=== PATIENT | female | born 1965 | race Caucasian/White ===

== ENCOUNTER 2024-08-08 00:33 | Inpatient (IN) | payer OTHER ==
[~2024-08-08] VITALS: Ht 152.4 cm; Wt 81.6 kg
--- NOTE | 2024-08-08 01:09 | NUR ---
SE RECIBE PACIENTE ALERTA Y ORIENTADA X3 LA CUAL REFIERE VENIR A [place] DE QUE EN EL [place] [facility] EN [facility] DONDE LA TRANSFIRIERON A [facility] PARA REALIZARLE UN ERCP Y ENCONTRARON JOSE ANGEL EN EL CONDUCTO BILIAR Y EN LA VESICULA. LUE[place] DE ESO PACIENTE EXPLICA QUE EL [facility] NO LE PERMITIO QUEDARSE ADMITIDA EN [facility] Y TUVO QUE VOLVER AL [facility] PARA EXONERAR [facility] Y VOLVER A [facility] PARA CONTINUAR ATENDIENDOSE CON GASTROENTEROLOGA DR. RASHI CHOE.
[2024-08-08] MEDS ORDERED: FAMOTIDINE/PF 20 MG/2 ML VIAL IV PUSH STA (01:54)
[2024-08-08] MEDS ORDERED: HYOSCYAMINE SULFATE 0.125 MG TAB.SUBL SL STA (01:55)
[2024-08-08] MEDS ORDERED: RINGERS SOLUTION,LACTATED 1,000 ML IV ONE (02:00)
--- NOTE | 2024-08-08 02:05 | NUR ---
SE ORIENTA A PACIENTE SOBRE [place] MEDICO, REFIERE ENTENDER. SE REALIZAN MUESTRAS DE LABORATORIO BAJO MEDIDAS ASEPTICAS. SE ADMINISTRAN MEDICAMENTO SAE ORDEN MEDICA. PACIENTE MANEJADA POR .
[2024-08-08 03:12] LABS: ALBUMIN 3.5 gm/dL (3.4-5.0); BILIRUBIN TOTAL 0.75 mg/dL (0.3-1.2); BILIRUBIN,CONJUGATED 0.29 mg/dL (0.0-0.2); BILIRUBIN,UNCONJUGATED 0.46 mg/dL (0.0-0.6); CALCIUM 9.3 mg/dL (8.5-10.1); CREATININE SERUM 0.84 mg/dL (0.55-1.02); GFR 69.4; GLOBULINA 3.5 G/DL (2.4-3.5); POTASSIUM 4.2 mEq/L (3.5-5.1)
[2024-08-08 03:52] LABS: HEMATOCRIT 42.7 % (36.0-45.00); HEMOGLOBIN 14.6 g/dL (12.0-15.00); MEAN CELL VOLUME 87.6 fL (80.00-100.00); MEAN CORPUSCULAR HEMOGLOBIN 29.9 pg (27.00-32.0); MEAN CORPUSCULAR HGB CONC 34.2 g/dl (32.0-36.0); PLATELET COUNT 267 K/uL (150-450); RED BLOOD COUNT 4.88 M/uL (4.00-6.00); RED CELL DISTRIBUTION WIDTH 13.7 % (11.5-14.5)
[2024-08-08 04:57] LABS: INR 1.09; PARTIAL THROMBOPLASTIN TIME 29.1 SECONDS (22.0-34.0); PROTHROMBIN TIME 11.8 SECONDS (9.0-11.5)
--- NOTE | 2024-08-08 07:37 | NUR ---
SE RECIBE MASCULINO DESCANSANDO AL MOMENTO CON BARADAS ELEVADAS POR ABDI SEGURIDAD Y JEONG DE ID. VENOPUNCION PATENTE BAJANDO IV FLUIDS POR REGULADOR. PTE PENDIENTE A RE-EVAL.
[2024-08-08] MEDS ORDERED: PIPERACILLIN/TAZOBACTAM SODIUM 3.375 GM in DEXTROSE 5 % IN WATER 100 ML IV SCH (08:11)
[2024-08-08 08:35] LABS: PH,URINE 5.5 (5.0-8.0); URINE APPEARANCE Clear; URINE BILIRRUBIN Negative (NEGATIVE); URINE BLOOD Negative; URINE COLOR Yellow; URINE GLUCOSE Negative (NEGATIVE); URINE LEUKOCYTE Negative; URINE NITRATE Negative; URINE PROTEIN Negative (NEGATIVE); URINE UROBILINOGEN 0.2 E.U./dl
[2024-08-08 08:39] LABS: URINE EPITHELIAL CELLS 4.6 uL (0.0-38.8)
[2024-08-08 09:14] LABS: URINE BACTERIA 1.2 uL (0.0-1933); URINE KETONE 80 (NEGATIVE); URINE RBC 1.5 uL (0.0-20.8)
[2024-08-08] MEDS ORDERED: 0.9 % SODIUM CHLORIDE 1,000 ML IV SCH (18:00)
[2024-08-08] MEDS ORDERED: ONDANSETRON HCL 4 MG in 0.9 % SODIUM CHLORIDE 50 ML IV PRN (18:00)
[2024-08-08] MEDS ORDERED: MORPHINE SULFATE 4 MG/ML CARTRIDGE IV PRN (18:00)
[2024-08-08] MEDS ORDERED: ACETAMINOPHEN 500 MG GEL..CAP PO PRN (18:00)
[2024-08-08] MEDS ORDERED: RINGERS SOLUTION,LACTATED 1,000 ML IV SCH (18:15)
[2024-08-08 18:41] VITALS: BP 117/74; O2SAT 98
[2024-08-09 00:09] VITALS: BP 136/77; O2SAT 97
[2024-08-09 05:41] LABS: BILIRUBIN TOTAL 0.86 mg/dL (0.3-1.2); CALCIUM 8.7 mg/dL (8.5-10.1); CREATININE SERUM 0.76 mg/dL (0.55-1.02); GFR 77.89; GLOBULINA 3.1 G/DL (2.4-3.5); POTASSIUM 4.21 mEq/L (3.5-5.1); TOTAL PROTEIN 6.1 gm/dL (6.4-8.2)
[2024-08-09] MEDS ORDERED: LEVOTHYROXINE SODIUM 50 MCG TABLET PO SCH (06:00)
[2024-08-09 08:52] VITALS: BP 117/54; O2SAT 98
[2024-08-09 08:55] VITALS: BP 127/70; O2SAT 98
[2024-08-09] MEDS ORDERED: FAMOTIDINE/PF 20 MG/2 ML VIAL IV SCH (09:00)
[2024-08-09] MEDS ORDERED: FAMOTIDINE/PF 20 MG in 0.9 % SODIUM CHLORIDE 8 ML IV PUSH SCH (09:00)
[2024-08-09] MEDS ORDERED: ONDANSETRON HCL 2 MG/ML VIAL IV PRN (15:30)
[2024-08-09] MEDS ORDERED: BUPIVACAINE HCL 30 ML VIAL IJ ONE (16:15)
[2024-08-09] MEDS ORDERED: TRAMADOL HCL 50 MG TABLET PO PRN (16:30)
[2024-08-09] MEDS ORDERED: MORPHINE SULFATE 4 MG/ML VIAL IV ONE ×2 (17:10→17:55)
[2024-08-09 21:40] VITALS: BP 139/86
[2024-08-10 00:12] VITALS: BP 134/66
[2024-08-10 07:40] LABS: ALBUMIN 2.9 gm/dL (3.4-5.0); BILIRUBIN TOTAL 0.88 mg/dL (0.3-1.2); CALCIUM 8.6 mg/dL (8.5-10.1); CREATININE SERUM 0.65 mg/dL (0.55-1.02); GFR 93.29; POTASSIUM 4.04 mEq/L (3.5-5.1); TOTAL PROTEIN 5.9 gm/dL (6.4-8.2)
[2024-08-10 08:51] VITALS: BP 114/72; O2SAT 95
== END 2024-08-10 15:06 | disposition home or self-care (01) | DRG 418 ==
LOC: ER 00:33 → MEDI 18:08
PROVIDERS: General Practice; Surgery; ADMIT Student in an Organized Health Care Education/Training Program; ATTEND Student in an Organized Health Care Education/Training Program
PROC: BW40ZZZ Ultrasonography of Abdomen (ICD-10-PCS; 2024-08-08)
PROC: 0WQF4ZZ Repair Abdominal Wall, Percutaneous Endoscopic Approach (ICD-10-PCS; 2024-08-09)
PROC: 0FT44ZZ Resection of Gallbladder, Percutaneous Endoscopic Approach (ICD-10-PCS; principal; 2024-08-09 12:00)
DX: K80.10 Calculus of gallbladder with chronic cholecystitis without obstruction (principal); K90.49 Malabsorption due to intolerance, not elsewhere classified; K43.9 Ventral hernia without obstruction or gangrene; E03.9 Hypothyroidism, unspecified; Z88.6 Allergy status to analgesic agent

== ENCOUNTER → 2024-08-09 | Day surgery (SDC) | payer OTHER ==
[~2024-08-09] MED LIST: IOVERSOL 320 MG/ML - 50 ML VIAL IV ONE
== END | disposition home or self-care (01) ==
LOC: AMB-ERCP 08-07 13:30
PROVIDERS: ATTEND Internal Medicine
DX: K80.50 Calculus of bile duct without cholangitis or cholecystitis without obstruction (principal)